=== PATIENT | female | born 1940 | race Caucasian/White ===

== ENCOUNTER 2017-03-06 08:14 | Emergency (ER) | payer MEDICARE ==
[~2017-03-06] VITALS: Ht 157.5 cm; Wt 63.6 kg
[2017-03-06 08:18] VITALS: TEMP 97.9
[2017-03-06] MEDS ORDERED: PRINIVIL20 MG PO (08:20)
[2017-03-06] MEDS ORDERED: BP MED (08:20)
[2017-03-06 08:46] LABS: BASO # 0.1 (0.0-0.2); BASO % 0.8 % (0.0-2.0); EOS # 0.1 (0.0-0.7); EOS % 0.8 % (0-4.0); GRAN # 4.1 (1.4-6.5); HEMATOCRIT 44.2 % (37.0-47.0); HEMOGLOBIN 14.6 g/dl (12.5-16.0); LYMPH # 4.3 (1.2-3.4); LYMPH % 46.7 % (20.0-51.0); MEAN CELL VOLUME 90 fl (80.0-100.0); MEAN CORPUSCULAR HEMOGLOBIN 30 pg (27.0-31.0); MEAN CORPUSCULAR HGB CONC 33 g/dl (33.0-37.0); MEAN PLATELET VOLUME 10.8 fl (7.4-10.4); MONO # 0.7 (0.1-0.6); MONO % 7.1 % (1.7-9.3); PLATELET COUNT 213 K/mm3 (130-400); RED BLOOD COUNT 4.94 M/mm3 (4.10-5.30); REDCELL DISTRIBUTION WIDTH-CV 13.1 % (11.5-14.5); WHITE BLOOD COUNT 9.3 K/mm3 (4.8-10.8)
[2017-03-06 08:51] LABS: PROTHROMBIN TIME 10.9 SECONDS (9.7-12.8)
[2017-03-06 08:54] LABS: PARTIAL THROMBOPLASTIN TIME 27.2 SECONDS (26.0-37.0)
[2017-03-06 09:01] LABS: ADJUSTED CALCIUM 8.8 mg/dL (8.4-10.2); ALANINE AMINOTRANSFERASE 24 U/L (9-52); ALBUMIN 4.4 gm/dL (3.5-5.0); ALKALINE PHOSPHATASE 60 U/L (50-136); ANION GAP 11 mmol/L (7-16); BILIRUBIN,TOTAL 0.7 mg/dL (0.0-1.0); BLOOD UREA NITROGEN 14 mg/dL (7-17); CALCIUM 9.1 mg/dL (8.4-10.2); CARBON DIOXIDE 24 mmol/L (22-30); CHLORIDE 101 mmol/L (98-107); GLUCOSE 135 mg/dL (74-106); POTASSIUM 3.6 mmol/L (3.4-5.0); SODIUM 136 mmol/L (137-145); TOTAL PROTEIN 7.2 gm/dL (6.4-8.2)
[2017-03-06 09:18] LABS: TROPONIN-I < 0.012 ng/mL (0.000-0.034)
[2017-03-06] MEDS ORDERED: FLEXERIL5 MG PO (11:17)
[2017-03-06] MEDS ORDERED: VOLTAREN 75 DR75 MG PO (11:17)
[2017-03-06 11:37] VITALS: BP 208/94; PULSE 64
== END 2017-03-06 11:39 | disposition home or self-care (01) ==
LOC: COL.ER 08:14
PROVIDERS: Emergency Medicine
DX: S16.1XXA Strain of muscle, fascia and tendon at neck level, initial encounter (principal); X58.XXXA Exposure to other specified factors, initial encounter; M50.30 Other cervical disc degeneration, unspecified cervical region; I10 Essential (primary) hypertension; M62.838 Other muscle spasm
CPT/HCPCS: J1885; J2270; J2360; J7030

== ENCOUNTER → 2017-03-09 | Outpatient (CLI) | payer MEDICARE ==
[~2017-03-09] MED LIST: BP MED; FLEXERIL5 MG PO; PRINIVIL20 MG PO; VOLTAREN 75 DR75 MG PO
== END ==
LOC: MC.RAD 14:00
DX: Z12.31 Encounter for screening mammogram for malignant neoplasm of breast (principal)

== ENCOUNTER → 2018-03-15 | Outpatient (CLI) | payer MEDICARE | LOC: MC.RAD 09:40 | DX: Z12.31 Encounter for screening mammogram for malignant neoplasm of breast (principal) ==

== ENCOUNTER → 2019-03-17 | Outpatient (CLI) | payer MEDICARE | LOC: MC.RAD 13:09 | DX: Z12.31 Encounter for screening mammogram for malignant neoplasm of breast (principal) ==

== ENCOUNTER 2019-06-19 09:12 | Day surgery (SDC) | payer MEDICARE ==
[2019-06-19] VITALS (198 sets, daily range): BP systolic 111–163; BP diastolic 32–87; PULSE 61–110; TEMP 97.7–98.5; O2SAT 92–99
[2019-06-19 09:39] LABS: HEMATOCRIT 39.4 % (37.0-47.0); HEMOGLOBIN 12.7 g/dl (12.5-16.0); MEAN CELL VOLUME 90 fl (80.0-100.0); MEAN CORPUSCULAR HEMOGLOBIN 29 pg (27.0-31.0); MEAN CORPUSCULAR HGB CONC 32 g/dl (33.0-37.0); MEAN PLATELET VOLUME 10.1 fl (7.4-10.4); PLATELET COUNT 248 K/mm3 (130-400); RED BLOOD COUNT 4.36 M/mm3 (4.10-5.30); REDCELL DISTRIBUTION WIDTH-CV 13.4 % (11.5-14.5)
[2019-06-19] MEDS ORDERED: NORVASC 10MG10 MG PO (09:39)
[2019-06-19] MEDS ORDERED: MASON NATURAL2000 IU PO (09:39)
[2019-06-19] MEDS ORDERED: PRINZIDE 25 MG-1 TAB PO (09:40)
[2019-06-19] MEDS ORDERED: TOPROL XL100 MG PO (09:40)
[2019-06-19 09:57] LABS: CALCIUM 9.1 mg/dL (8.4-10.2); CREATININE, serum 0.78 (0.52-1.25); POTASSIUM 3.7 mmol/L (3.4-5.0)
[2019-06-19 10:08] LABS: INR 0.9 (0.8-3.0); PROTHROMBIN TIME 10.6 SECONDS (9.7-12.8)
[2019-06-19 10:11] LABS: PARTIAL THROMBOPLASTIN TIME 31.1 SECONDS (26.0-37.0)
--- NOTE | 2019-06-19 11:02 | NUR ---
SEE NOA FOR MEDICATION ADMINISTRATION TIMES, INTRA/POST SEDATION ASSESSMENT
--- NOTE | 2019-06-19 12:15 | NUR ---
Back from culture media laboratory assistant. Right Tband noted with 15 cc air, good pulses and cap refill < 3 secs noted. VSS. Family bedside
--- NOTE | 2019-06-19 16:30 | NUR ---
Tband deflated of 15 cc over 30 minutes. Pressure dressing applied.
--- NOTE | 2019-06-19 19:10 | NUR ---
Report given to IMCU nurse.
--- NOTE | 2019-06-19 20:01 | NUR ---
Pt resting in bed, denies any pain, shortness of breath, VSS, right radial puncture site from earlier heart cath is soft, no current bleeding noted, no s/s of hematoma, dreassing c/d/i. will continue to monitor and update providers as needed.
[2019-06-20] VITALS (475 sets, daily range): BP systolic 126–1313; BP diastolic 51–69; PULSE 66–84; TEMP 98.2–98.6; O2SAT 89–100
[2019-06-20 05:08] LABS: BASO # 0.1 (0.0-0.2); BASO % 0.7 % (0.0-2.0); EOS # 0.1 (0.0-0.7); EOS % 0.8 % (0-4.0); GRAN # 5.5 (1.4-6.5); GRAN % 63.5 % (42.2-75.2); HEMATOCRIT 37.6 % (37.0-47.0); HEMOGLOBIN 12.6 g/dl (12.5-16.0); LYMPH # 2.3 (1.2-3.4); MEAN CELL VOLUME 88 fl (80.0-100.0); MEAN CORPUSCULAR HEMOGLOBIN 29 pg (27.0-31.0); MEAN CORPUSCULAR HGB CONC 34 g/dl (33.0-37.0); MEAN PLATELET VOLUME 10.3 fl (7.4-10.4); MONO # 0.8 (0.1-0.6); MONO % 8.7 % (1.7-9.3); PLATELET COUNT 260 K/mm3 (130-400); RED BLOOD COUNT 4.28 M/mm3 (4.10-5.30); REDCELL DISTRIBUTION WIDTH-CV 13.3 % (11.5-14.5)
[2019-06-20 05:20] LABS: CALCIUM 9.1 mg/dL (8.4-10.2); CREATININE, serum 0.77 (0.52-1.25); POTASSIUM 3.8 mmol/L (3.4-5.0)
--- NOTE | 2019-06-20 07:00 | NUR ---
Bedside shift report received from TOBY Soler. Patient is awake, alert, and responds appropriately. Full assessment completed. Vital signs stable. Bed in lowest position. Call light within reach. Side rails up x2.
[2019-06-20] MEDS ORDERED: LIPITOR 80MG80 MG PO (09:25)
[2019-06-20] MEDS ORDERED: BRILINTA90 MG PO (09:25)
[2019-06-20] MEDS ORDERED: ASPIRIN E.C. 8181 MG PO (09:25)
--- NOTE | 2019-06-20 14:19 | NUR ---
Patient's vital signs stable and discharge instructions provided to patient. Patient educated on cardiac catheterization discharge instructions. INT discontinued at this time. Patient independently gathers personal belongings and able to dress herself. Patient is then transferred out via wheelchair by RN with no complications. Patient assisted into personal vehicle with driving.
== END 2019-06-20 14:19 | disposition home or self-care (01) ==
LOC: COL.CAR 09:12 → ICU 16:14 → IMCU 19:15 → COL.CAR 06-20 14:19
PROVIDERS: Internal Medicine Cardiovascular Disease; Nurse Practitioner
DX: I25.110 Atherosclerotic heart disease of native coronary artery with unstable angina pectoris (principal); R94.39 Abnormal result of other cardiovascular function study; Z88.0 Allergy status to penicillin; Z88.2 Allergy status to sulfonamides; I08.1 Rheumatic disorders of both mitral and tricuspid valves
CPT/HCPCS: OP; C1769; C1874; C1887; C9600; C9601; J1644; J2250; J3010; Q9967

== ENCOUNTER → 2020-03-22 | Outpatient (CLI) | payer MEDICARE ==
[~2020-03-22] MED LIST changes: +ASPIRIN E.C. 8181 MG PO; +BRILINTA90 MG PO; +LIPITOR 80MG80 MG PO; +MASON NATURAL2000 IU PO; +NORVASC 10MG10 MG PO; +PRINZIDE 25 MG-1 TAB PO; +TOPROL XL100 MG PO
== END ==
LOC: MC.RAD 03-19 09:30
DX: Z12.31 Encounter for screening mammogram for malignant neoplasm of breast (principal)

== ENCOUNTER → 2020-04-17 | Outpatient (CLI) | payer MEDICARE | LOC: COL.RAD 12:13 | DX: Z01.812 Encounter for preprocedural laboratory examination (principal); I65.23 Occlusion and stenosis of bilateral carotid arteries | CPT/HCPCS: Q9967 ==

== ENCOUNTER → 2020-11-04 | Outpatient (CLI) | payer MEDICARE | LOC: DIA.ED 09:28 | DX: E11.9 Type 2 diabetes mellitus without complications (principal) | CPT/HCPCS: G0108 ==

== ENCOUNTER → 2020-11-27 | Outpatient (CLI) | payer MEDICARE | LOC: DIA.ED 11-18 08:57 | DX: E11.59 Type 2 diabetes mellitus with other circulatory complications (principal) ==

== ENCOUNTER → 2021-05-23 | Outpatient (CLI) | payer MEDICARE | LOC: COL.RAD 13:07 | DX: R42 Dizziness and giddiness (principal); Z95.5 Presence of coronary angioplasty implant and graft | CPT/HCPCS: A9585 ==

== ENCOUNTER → 2022-04-10 | Outpatient (CLI) | payer MEDICARE | LOC: MC.RAD 10:59 | DX: Z12.31 Encounter for screening mammogram for malignant neoplasm of breast (principal) ==

== ENCOUNTER → 2023-05-11 | Outpatient (CLI) | payer MEDICARE | LOC: CANSCHCLI → MC.RAD 13:30 | DX: Z12.31 Encounter for screening mammogram for malignant neoplasm of breast (principal) ==

== ENCOUNTER 2023-11-25 09:29 | Inpatient (IN) | payer MEDICARE ==
[2023-11-25] VITALS (7 sets, daily range): BP systolic 122–152; BP diastolic 56–77; PULSE 76–90; TEMP 97.9–98.4
[~2023-11-25] VITALS: Ht 157.5 cm; Wt 70.4 kg
[2023-11-25] MEDS ORDERED: NS 1,000 ML IV ONE (09:30)
[2023-11-25 09:48] LABS: HEMOGLOBIN 10.9 g/dl (12.5-16.0); MEAN CELL VOLUME 87 fl (80.0-100.0); MEAN CORPUSCULAR HEMOGLOBIN 30 pg (27-31); MEAN CORPUSCULAR HGB CONC 35 g/dl (33.0-37.0); MEAN PLATELET VOLUME 10.8 fl (7.4-10.4); PLATELET COUNT 246 K/mm3 (130-400); RED BLOOD COUNT 3.59 M/mm3 (4.10-5.30); REDCELL DISTRIBUTION WIDTH-CV 12.5 % (11.5-14.5)
[2023-11-25 09:54] LABS: HEMATOCRIT 31.1 % (37.0-47.0)
[2023-11-25 10:02] LABS: INR 1.2 (0.8-3.0); PROTHROMBIN TIME 12.5 SECONDS (9.7-12.8)
[2023-11-25 10:18] LABS: BAND 16 % (0-10); LYMPHOCYTE 13 % (20.0-51.0); NEUTROPHILS 63 % (42.0-75.2); PLATELET ESTIMATE NORMAL (NORMAL)
[2023-11-25 10:33] LABS: ALANINE AMINOTRANSFERASE 12 U/L (0-55); ALBUMIN 2.8 g/dL (3.4-4.8); ALKALINE PHOSPHATASE 47 U/L (40-150); ANION GAP 9 mmol/L (7-16); AST,SGOT 20 U/L (5-34); BILIRUBIN,TOTAL 0.5 mg/dL (0.2-1.2); BLOOD UREA NITROGEN 16 mg/dL (10-20); C-REACTIVE PROTEIN 14.26 mg/dL (0.00-0.50); CALCIUM 8.8 mg/dL (8.4-10.2); CREATININE, serum 0.73 mg/dL (0.57-1.11); GLUCOSE 191 mg/dL (70-99); POTASSIUM 4.2 mEq/L (3.5-4.5); TOTAL PROTEIN 5.9 g/dl (6.2-8.1)
[2023-11-25 10:34] LABS: CHLORIDE 81 mEq/L (98-107); SODIUM 115 mEq/L (136-145)
[2023-11-25 10:39] LABS: TROPONIN-I < 0.010 ng/mL (0.00-0.033)
[2023-11-25 10:44] LABS: URINE APPEARANCE CLEAR (CLEAR/HAZY); URINE BLOOD NEGATIVE (NEGATIVE); URINE COLOR YELLOW (YELLOW); URINE GLUCOSE TRACE (NEGATIVE); URINE KETONE TRACE (NEGATIVE); URINE NITRATE NEGATIVE (NEGATIVE); URINE PROTEIN(semi-quant) 1+ (NEGATIVE); URINE UROBILINOGEN 0.2 E.U/dL (0.2-1.0)
[2023-11-25] MEDS ORDERED: LIPITOR 80MG80 MG PO (11:05)
[2023-11-25] MEDS ORDERED: GLUCOPHAGE XR500 M1 PO (11:05)
[2023-11-25] MEDS ORDERED: PLAVIX 75MG TAB75 MG PO (11:06)
[2023-11-25] MEDS ORDERED: ASPIRIN E.C. 8181 MG PO (11:08)
[2023-11-25 11:22] LABS: CALCIUM 8.8 mg/dL (8.4-10.2); CREATININE, serum 0.73 mg/dL (0.57-1.11); POTASSIUM 4.2 mEq/L (3.5-4.5)
[2023-11-25 11:23] LABS: COLLECTION METHOD CLEAN CATCH
[2023-11-25 11:24] LABS: MUCOUS PRESENT (NOT PRESENT); SQUAMOUS EPITHELIAL NONE SEEN /hpf (0-10); URINE BACTERIA RARE /hpf (NONE SEEN); URINE RBC 0-2 /hpf (0-2); URINE WBC 0-2 /hpf (0-2)
--- NOTE | 2023-11-25 12:47 | NUR ---
PT TO ROOM 326 FROM ED WITH REPORT FROM GARCÍA LUIS. PT IS PARTIALLY ALERT BUT NOT ORIENTED. LABS SIGNIFICANT FOR HYPONATREMIA. FLACO SHIN FOR THUY IN TO SEE PT AND MAKE RECS FOR CONTINUED CARE OF S/P RIGHT KNEE REPLACEMENT. IV NS RUNNING @125 PER ORDERS. FAMILY AT BEDSIDE.
[2023-11-25] MEDS ORDERED: ANTIVERT 25MG25 MG PO (12:56)
[2023-11-25] MEDS ORDERED: CORTISPORIN OTI10 M2 OT (12:57)
[2023-11-25] MEDS ORDERED: VITAMIN C500 MG PO (12:57)
[2023-11-25] MEDS ORDERED: FOLIC ACID 40400 MCG PO (12:58)
[2023-11-25] MEDS ORDERED: Insulin Lispro (HumaLOG) SQ SCH (13:55)
[2023-11-25] MEDS ORDERED: Polyethylene Glycol 3350 17 GM PDS PO PRN (14:00)
[2023-11-25] MEDS ORDERED: Acetaminophen 325 MG TAB PO PRN (14:00)
[2023-11-25] MEDS ORDERED: Docusate Sodium 100 MG CAP PO PRN (14:00)
[2023-11-25] MEDS ORDERED: Ondansetron 4 MG/2 ML VIAL IV PRN (14:00)
[2023-11-25] MEDS ORDERED: NS 1,000 ML IV SCH (14:00)
[2023-11-25] MEDS ORDERED: Dextrose 50% Water 25 GM/50 ML SYRINGE IV PRN (14:30)
[2023-11-25] MEDS ORDERED: Glucagon 1 MG VIAL IM PRN (14:30)
[2023-11-25] MEDS ORDERED: Dextrose (Glucose) 15 GM (4 x 3.75 GM) Chewable TABLET PACK PO PRN (14:30)
--- NOTE | 2023-11-25 16:26 | NUR ---
UPDATED DR. ZHONG AND GANESH SILVERIO OF LAB RESULTS.
[2023-11-25] MEDS ORDERED: Atorvastatin 80 MG TAB PO SCH (21:00)
[2023-11-25] MEDS ORDERED: Ascorbic Acid 500 MG TAB PO SCH (21:00)
[2023-11-26] VITALS (13 sets, daily range): BP systolic 113–138; BP diastolic 65–78; PULSE 84–94; TEMP 97.2–98.6
--- NOTE | 2023-11-26 00:14 | NUR ---
LAB CALLED AT 2330 WITH A SODIUM LEVEL OF 116. MICAELA BALL APRN NOTIFIED AT 3652 AND A NEW ORDER WAS RECEIVED TO INCREASE IVF NORMAL SALINE RATE TO 150 ML/HR.
[2023-11-26] MEDS ORDERED: Morphine 4 MG/ML VIAL IV PRN (00:45)
--- NOTE | 2023-11-26 01:03 | NUR ---
THE PATIENT WAS VERY RESTLESS AND MOANING LOUDLY. THE PATIENT ANSWERED YES WHEN ASKED IF SHE WAS IN PAIN. MICAELA BALL APRN WAS NOTIFIED AND A NEW ORDER WAS RECEIVED FOR PRN IVP MORPHINE. WILL MONITOR.
--- NOTE | 2023-11-26 01:44 | NUR ---
NURSING SHIFT ASSESSMENT COMPLETED. THE PATIENT WAS NOT ORIENTED EXCEPT TO SELF. THE PATIENT WAS CONFUSED, BUT COULD FOLLOW SIMPLE COMMANDS. THE PATIENT DID NOT APPEAR TO BE IN PAIN AT THIS TIME. REORIENTING THE PATIENT WAS UNSUCCESSFUL. THE BED ALARM IS ON, AND THE PATIENT IS NEAR THE NURSES STATION. THE BED IS IN THE LOW POSITION.
--- NOTE | 2023-11-26 06:40 | NUR ---
appears to be dozing, bedside shift report received from TOBY Nguyen, arouses during report, she is oriented times 3 and requesting some water to drink
--- NOTE | 2023-11-26 07:35 | NUR ---
resting in bed with TV on, full assessment completed, see interventions for further info, offered breakfast but declines at this time
[2023-11-26 07:46] LABS: BASO % 0.2 % (0.0-2.0); GRAN # 12.4 K/mm3 (1.4-6.5); GRAN % 77.2 % (42.2-75.2); LYMPH # 1.6 K/mm3 (1.2-3.4); LYMPH % 10.1 % (20.0-51.0); MEAN CELL VOLUME 87 fl (80.0-100.0); MEAN CORPUSCULAR HGB CONC 35 g/dl (33.0-37.0); MEAN PLATELET VOLUME 11.3 fl (7.4-10.4); MONO # 1.9 K/mm3 (0.1-0.6); MONO % 11.9 % (1.7-9.3); PLATELET COUNT 205 K/mm3 (130-400); RED BLOOD COUNT 3.07 M/mm3 (4.10-5.30); REDCELL DISTRIBUTION WIDTH-CV 12.8 % (11.5-14.5)
[2023-11-26 07:47] LABS: HEMATOCRIT 26.8 % (37.0-47.0); HEMOGLOBIN 9.3 g/dl (12.5-16.0); MEAN CORPUSCULAR HEMOGLOBIN 30 pg (27-31)
--- NOTE | 2023-11-26 07:50 | NUR ---
ALEIDA Munoz in to see patient
[2023-11-26 08:06] LABS: C-REACTIVE PROTEIN 10.68 mg/dL (0.00-0.50); CALCIUM 7.9 mg/dL (8.4-10.2); CREATININE, serum 0.58 mg/dL (0.57-1.11); POTASSIUM 3.4 mEq/L (3.5-4.5)
[2023-11-26] MEDS ORDERED: Cholecalciferol (Vit D3) 1000 Units TAB PO SCH (09:00)
[2023-11-26] MEDS ORDERED: amLODIPine 10 MG TAB PO SCH (09:00)
[2023-11-26] MEDS ORDERED: Clopidogrel 75 MG TAB PO SCH (09:00)
--- NOTE | 2023-11-26 09:40 | NUR ---
physical therapy in to work with patient, she is standing at the edge of bed and is only to take minimal steps along side of bed, then assisted back to bed by therapist and myself, she is alert and oriented but also a little forgetful at times, offered breakfast and she is ready now to eat, breakfast ordered, and key entry operator at bedside
[2023-11-26] MEDS ORDERED: Potassium Bicarbonate/Citrate 20 MEQ Effervescent TAB PO SCH (10:45)
[2023-11-26] MEDS ORDERED: *Potassium Replacement Protocol MC SCH (10:45)
--- NOTE | 2023-11-26 12:30 | NUR ---
moving about in bed and moaning, states she has been c/o pain, medicated with morphine 2mg slow IV
--- NOTE | 2023-11-26 13:00 | NUR ---
appears more comfortable now, is not moaning or moving about in bed, assisted her with ordering lunch
--- NOTE | 2023-11-26 13:57 | NUR ---
only at small amount lunch even with encouragement
--- NOTE | 2023-11-26 14:51 | NUR ---
wine cellar worker met with patient and , Armani [phone] to discuss discharge planning. Pt reports she lives with her in [place]. She sees Dr. Sequeira and obtains medications from [facility] with no difficulties. She reports to be independent and uses a CPAP for DME. She reports her is DPOA-HC and he thinks this is at home somewhere. SW provided the Medicare.gov list of SNF places (PT/OT where pending) and discussed options including [facility] as this was written on the board. reports they do NOT want [facility]. He chose [facility] and only wants them. He reports the [facility] hospital confirmed she could go there and set everything up. SW states she will send her information there and see if they have a room. SW discussed the possibility of [facility] being full upon discharge and he would not provide a second choice. LEILANI spoke with the [facility], [place] who reports they spoke with [facility], but were told they were only available on Wednesday. She was not sure if authorization was put in into [facility]. LEILANI spoke with Leeanne at [facility] who received a call about this pt, but did not receive a referral for SNF. She reports the earliest opening is potentially Wednesday. SW faxed referral to [facility] SN[facility]. SW later met with pt and to provide the above information. remains adamant about only wanting [facility] and if there is no openings upon discharge, he will just take her home. Pt deferred to her for decisions on this. began to get frustrated and said, "you did this go around last time. You made me have a back up plan." SW advised she was making sure he was comfortable and understood the risks and plan if pt were not able to get into [facility] and they did not choose another facility option. SW discussed pt would need three midnights for insurance to cover her stay or it could be private pay if this is not met. advised she will be staying for at least another 48 hours. SW submitted auth for [facility] on [employer] portal. LEILANI passed on the above information to Dr Thornton and ALEIDA Powell regarding pt wanting [facility] vs home upon discharge. Discharge Plan: [facility] SNF vs home, AUTH PENDING
--- NOTE | 2023-11-26 15:00 | NUR ---
she is asking when she is going to have therapy, assisted her with standing at side of bed, she moved well getting out of bed, was weak and sat down quickly onto bed, report given to TOBY Power
--- NOTE | 2023-11-26 16:15 | NUR ---
THIS NURSE TOOK OVER CARE. PATIENT RESTING IN BED W/ SPOUSE AT BEDSIDE. PATIENT HAS NO REQUEST OR CONCERNS AT THIS TIME. FALL PRECAUTIONS IN PLACE AND CALL LIGHT IN REACH.
[2023-11-27] VITALS (11 sets, daily range): BP systolic 113–147; BP diastolic 57–76; PULSE 82–90; TEMP 97.6–99.1
--- NOTE | 2023-11-27 01:25 | NUR ---
NURSING SHIFT ASSESSMENT COMPLETED. THE PATIENT WAS ALERT AND ORIENTED TO SELF, SITUATION, NOT DATE OR TIME. THE PATIENT WAS ASSISTED TO THE [facility] WITH 1:1 WITH A GAIT BELT AND WALKER. THE PATIENT HAS DIFFICULTY FOLLOWING DIRECTIONS AND EASILY GETS CONFUSED WHEN TRYING TO AMBULATE OR TRANSFER. THE PATIENT DENIED PAIN. CALL LIGHT AND PERSONAL BELONGINGS WITHIN REACH. THE BED IS IN THE LOW POSITION AND THE BED ALARM IS ON.
[2023-11-27 07:03] LABS: CALCIUM 8.1 mg/dL (8.4-10.2); CREATININE, serum 0.59 mg/dL (0.57-1.11); POTASSIUM 3.2 mEq/L (3.5-4.5)
[2023-11-27] MEDS ORDERED: Potassium Bicarbonate/Citrate 20 MEQ Effervescent TAB PO SCH (07:30)
[2023-11-27 07:55] LABS: BASO % 0.1 % (0.0-2.0); EOS % 0.2 % (0.0-4.0); GRAN % 76.9 % (42.2-75.2); HEMATOCRIT 28.2 % (37.0-47.0); HEMOGLOBIN 9.8 g/dl (12.5-16.0); LYMPH # 1.2 K/mm3 (1.2-3.4); LYMPH % 10.2 % (20.0-51.0); MEAN CELL VOLUME 87 fl (80.0-100.0); MEAN CORPUSCULAR HEMOGLOBIN 30 pg (27-31); MEAN CORPUSCULAR HGB CONC 35 g/dl (33.0-37.0); MONO # 1.4 K/mm3 (0.1-0.6); PLATELET COUNT 213 K/mm3 (130-400); RED BLOOD COUNT 3.25 M/mm3 (4.10-5.30); REDCELL DISTRIBUTION WIDTH-CV 13.2 % (11.5-14.5)
[2023-11-27] MEDS ORDERED: 1/2 NS 1,000 ML IV SCH (08:00)
--- NOTE | 2023-11-27 08:45 | NUR ---
PT SLEEPING WITH CPAP ON. SODIUM IMPROVING. AT BEDSIDE AT THIS TIME. DRESSING TO RIGHT KNEE CDI WITH AQUACEL OVER INCISION. IV TO LFA.
--- NOTE | 2023-11-27 09:24 | NUR ---
PT TOOK AM MEDS WHOLE WITH JUICE. PT IS A/OX3. SOME MILD CONFUSION ON DATE AND DAY OF WEEK. UP TO RECLINER WITH THERAPY. IV RESTARTED PER DR. TRAN. PT TOLERATING ACTIVITY AT THIS TIME. PT'S AT BEDSIDE ASSISTING WITH AM CARES.
--- NOTE | 2023-11-27 15:23 | NUR ---
PT UP TO BR WITH GAURD ASSIST. PT A LITTLE UNSTEADY AND IMPULSIVE. VOIDED AND THEN RETURNED TO BED.
[2023-11-27] MEDS ORDERED: D5W 1,000 ML IV SCH (18:00)
--- NOTE | 2023-11-27 20:35 | NUR ---
PT IS A&O X3 WITH SOME INTERMITTENT CONFUSION. VSS. DRSG TO RT KNEE CDI & BILAT SCD & TEDS ON. PT RATING KNEE PAIN 02/01, GAVE PRN TYLENOL PER PT REQUEST. D5W INFUSING TO LEFT AC @ 100MLS/HR. DENYING FURTHER NEEDS. FALL PRECAUTIONS IN PLACE & CALL LIGHT IN REACH
[2023-11-28] VITALS (13 sets, daily range): BP systolic 116–159; BP diastolic 69–82; PULSE 75–88; TEMP 97.8–98.6
--- NOTE | 2023-11-28 05:30 | NUR ---
PT RESTING IN BED W/ UNLABORED RESP. CALL LIGHT IN REACH & FALL PRECAUTIONS IN PLACE
[2023-11-28 08:48] LABS: BASO % 0.2 % (0.0-2.0); EOS # 0.1 K/mm3 (0.0-0.7); EOS % 0.8 % (0.0-4.0); GRAN # 9.2 K/mm3 (1.4-6.5); GRAN % 74.1 % (42.2-75.2); HEMOGLOBIN 10.3 g/dl (12.5-16.0); LYMPH % 16.2 % (20.0-51.0); MEAN CELL VOLUME 91 fl (80.0-100.0); MEAN CORPUSCULAR HEMOGLOBIN 30 pg (27-31); MEAN CORPUSCULAR HGB CONC 33 g/dl (33.0-37.0); MEAN PLATELET VOLUME 10.1 fl (7.4-10.4); MONO % 7.8 % (1.7-9.3); PLATELET COUNT 286 K/mm3 (130-400); RED BLOOD COUNT 3.44 M/mm3 (4.10-5.30); REDCELL DISTRIBUTION WIDTH-CV 13.9 % (11.5-14.5)
[2023-11-28 08:51] LABS: HEMATOCRIT 31.2 % (37.0-47.0)
[2023-11-28 09:16] LABS: CALCIUM 8.6 mg/dL (8.4-10.2); CREATININE, serum 0.67 mg/dL (0.57-1.11); POTASSIUM 3.3 mEq/L (3.5-4.5)
--- NOTE | 2023-11-28 10:00 | NUR ---
PT RESTING IN BED AFTER THERAPY. ATE 80% OF BREAKFAST, AM MEDS GIVEN ORDERED. DRESSING TO RIGHT KNEE CDI. PT DENIES NEEDS. AT BEDSIDE. PT CONTINUES TO IMPROVE MOVING CLOSER TO BASELINE WITH LYTES BALANCING.
--- NOTE | 2023-11-28 10:03 | NUR ---
SW met with patient and to update on discharge plan. Insurance still pending for authorization to [facility]. Discussed Medicare IM form with patient who is agreeable to discharge when authorization is received. Patient signed IM form, original on chart, copy provided to patient. Discharge plan: SNF
[2023-11-28] MEDS ORDERED: Potassium Bicarbonate/Citrate 20 MEQ Effervescent TAB PO SCH (19:30)
[2023-11-29] VITALS (7 sets, daily range): BP systolic 146–156; BP diastolic 66–72; PULSE 73–79; TEMP 98.1–98.3
--- NOTE | 2023-11-29 01:14 | NUR ---
PT ALERT AND ORIENTED X4. SHE REMEMBERS ME FROM WHEN I TOOK CARE OF HER WHEN HE WAS ADMITTED LAST. DENIES PAIN, ONLY MILD WHEN AMBULATING HAS BEEN GETTING TYLENOL WITH RELIEF. POTASSIUM REPLACED PER PROTOCOL, ASSESSED. VSS, MEDICATED PER EMAR. DENIES FURTHER NEED, CALL LIGHT WITHIN REACH, FALL PREAUTIONS IN PLACE.
[2023-11-29 06:34] LABS: MEAN CELL VOLUME 91 fl (80.0-100.0); MEAN CORPUSCULAR HGB CONC 33 g/dl (33.0-37.0); MEAN PLATELET VOLUME 9.8 fl (7.4-10.4); PLATELET COUNT 290 K/mm3 (130-400); RED BLOOD COUNT 3.16 M/mm3 (4.10-5.30); REDCELL DISTRIBUTION WIDTH-CV 13.8 % (11.5-14.5)
[2023-11-29 06:39] LABS: HEMATOCRIT 28.8 % (37.0-47.0); HEMOGLOBIN 9.5 g/dl (12.5-16.0); MEAN CORPUSCULAR HEMOGLOBIN 30 pg (27-31)
[2023-11-29 06:49] LABS: CALCIUM 8.1 mg/dL (8.4-10.2); CREATININE, serum 0.63 mg/dL (0.57-1.11); POTASSIUM 4.1 mEq/L (3.5-4.5)
[2023-11-29 07:50] LABS: BAND 10 % (0-10); EOSINOPHIL 2 % (0-4); LYMPHOCYTE 22 % (20.0-51.0); NEUTROPHILS 57 % (42.0-75.2); PLATELET ESTIMATE NORMAL (NORMAL)
[2023-11-29] MEDS ORDERED: PRINIVIL20 MG PO (08:18)
[2023-11-29] MEDS ORDERED: traMADol 50 MG TAB PO PRN (08:30)
--- NOTE | 2023-11-29 08:30 | NUR ---
Patient resting in bed. Sat up in bed for breakfast and did well. Main complaint this am of increased pain in knee. Dr. Thornton made aware and Ultram orders obtained. Socail work to assist with discharge planning
[2023-11-29] MEDS ORDERED: TYLENOL 325MG325 MG PO (10:32)
[2023-11-29] MEDS ORDERED: ULTRAM 50MG TAB50 MG PO (10:33)
--- NOTE | 2023-11-29 13:35 | NUR ---
oyster worker was notified during clinical rounding that patient would be ready for discharge today. LEILANI notes insurance has provided approval for authorization for SNF. LEILANI secure emailed clinical updates to [facility]. [facility] expressed [facility] are able to accept today at 1:30 pm. LEILANI notified patient's nurse, neonatal intensive care unit nurse, patient and her . Patient had concerns about being charged for an ambulance. LEILANI explained patient would be transported via [facility] transportation. Patient understood and had no further questions. LEILANI secure emailed discharge orders to [facility]. Discharge plan: [facility]
--- NOTE | 2023-11-29 13:35 | NUR ---
Patient ready for discharge. Assisted patient to dress. Report called to Maria Esther, with questions answered. Staff helped patient shower prior to discharge. Her supportive spouse at bedside today. She did well with lunch, blood sugar stable not requiring medication. [facility] transportation to transport patient.
== END 2023-11-29 13:45 | DRG 640 ==
LOC: COL.ER 09:29 → SURG 12:07
PROVIDERS: Emergency Medicine; ADMIT Hospitalist
DX: E87.1 Hypo-osmolality and hyponatremia (principal); G93.41 Metabolic encephalopathy; E87.8 Other disorders of electrolyte and fluid balance, not elsewhere classified; E87.6 Hypokalemia; D72.829 Elevated white blood cell count, unspecified; I25.10 Atherosclerotic heart disease of native coronary artery without angina pectoris; G47.33 Obstructive sleep apnea (adult) (pediatric); I77.3 Arterial fibromuscular dysplasia; I10 Essential (primary) hypertension; M17.11 Unilateral primary osteoarthritis, right knee; E11.9 Type 2 diabetes mellitus without complications; Z95.5 Presence of coronary angioplasty implant and graft; Z99.89 Dependence on other enabling machines and devices; Z23 Encounter for immunization; Z89.521 Acquired absence of right knee; Z90.710 Acquired absence of both cervix and uterus; Z88.0 Allergy status to penicillin; Z88.2 Allergy status to sulfonamides; Z90.49 Acquired absence of other specified parts of digestive tract; Z79.82 Long term (current) use of aspirin; Z79.84 Long term (current) use of oral hypoglycemic drugs; Z79.899 Other long term (current) drug therapy; Z79.02 Long term (current) use of antithrombotics/antiplatelets
CPT/HCPCS: A4314; J1815; J2270; J2405; J7030; J7070

== ENCOUNTER → 2024-05-12 | Outpatient (CLI) | payer MEDICARE ==
[~2024-05-12] MED LIST changes: +ANTIVERT 25MG25 MG PO; +CORTISPORIN OTI10 M2 OT; +FOLIC ACID 40400 MCG PO; +GLUCOPHAGE XR500 M1 PO; +PLAVIX 75MG TAB75 MG PO; +TYLENOL 325MG325 MG PO; +ULTRAM 50MG TAB50 MG PO; +VITAMIN C500 MG PO
== END ==
LOC: MC.RAD 09:15
DX: Z12.31 Encounter for screening mammogram for malignant neoplasm of breast (principal)